=== PATIENT | female | born 1980 | race African-American/Black ===

== ENCOUNTER 2017-02-04 23:40 | Inpatient (IN) | payer BC ==
[2017-02-05 00:30] LABS: #Basophils 0.1 thou/uL (0.0-0.2); #Eosinphils 0.1 thou/uL (0.0-0.7); #Lymphocytes 3.1 thou/uL (1.20-3.40); #Monocytes 0.6 thou/uL (0.11-0.59); #Neutrophils 6.3 thou/uL (1.40-6.50); %Basophils 0.9 % (0.0-1.0); %Eosinophils 1.3 % (0.0-10.0); %Lymphocytes 30.3 % (21.0-51.0); %Monocytes 5.8 % (0.0-10.0); Hematocrit 19.6 % (36.0-47.0); Hypochromia MARKED = >30 cells (100X) (0-5/hpf); Mean Platelet Volume 9.3 fL (7.4-10.4); Microcytosis SLIGHT = 6-15 cells (100X) (0-5/hpf); Ovalocytes SLIGHT = 2-5 cells (100X) (0-1/hpf); Red Blood Cell (RBC) Count 3.54 mill/uL (4.20-5.40); Target Cells SLIGHT = 2-5 cells (100X) (0-1/hpf); Tear Drops SLIGHT = 2-5 cells (100X) (0-1/hpf); White Blood Cell (WBC) Count 10.2 thou/uL (4.8-10.8)
[2017-02-05 00:35] LABS: ALT (SGPT) Less than 7 U/L (8-55); AST (SGOT) 13 U/L (5-34); Alkaline Phosphatase 60 U/L (40-150); Anion Gap 12 mmol/L (10-20); BUN (Urea Nitrogen) 12 mg/dL (7.0-18.7); Bilirubin, Total 0.3 mg/dL (0.2-1.2); Calc. Creatinine Clearance 0 mL/min (70-130); Calcium 8.3 mg/dL (7.8-10.44); Carbon Dioxide 26 mmol/L (22-29); Chloride 105 mmol/L (98-107); Estimated GFR-MDRD 74; Globulin 3.8 g/dL (2.4-3.5); Lipase 12 U/L (8-78); Protein, Total 7.6 g/dL (6.0-8.3)
[2017-02-05] MEDS ORDERED: Pantoprazole 80 MG, Admixture Fee 1 EACH in Sodium Chloride 0.9% 100 ML IVP SCH (00:45)
[2017-02-05] MEDS ORDERED: Ondansetron HCl/PF 4 MG/2 ML Vial ONE ×2 (01:09→16:48)
[2017-02-05] MEDS ORDERED: Pantoprazole 40 MG VIAL ONE (01:09)
[2017-02-05 01:51] LABS: Prothrombin Time 13.2 SEC (12.0-14.7)
[2017-02-05] MEDS ORDERED: Ondansetron ODT 4 MG TAB SL PRN (02:58)
[2017-02-05] MEDS ORDERED: Ondansetron HCl/PF 4 MG/2 ML Vial IVP PRN ×3 (02:58→18:20)
[2017-02-05] MEDS ORDERED: Acetaminophen 325 MG TAB PO PRN (02:58)
[2017-02-05 03:10] VITALS: BMI 38.2
[2017-02-05] MEDS: Lactated Ringer's 1,000 ML IV SCH ×2 (03:15→11:27)
--- NOTE | 2017-02-05 08:30 | HP ---
DATE OF ADMISSION: 02/05/2017 CHIEF COMPLAINT: Vomiting blood. HISTORY OF PRESENT ILLNESS: The patient is a 36-year-old -[place] female who had acute onset of pain, nausea, vomiting, and abdominal cramps, which started last night. She felt different few d ays ago and gradually the way she felt changed to the point that she started vomiting blood and clots and she came to the emergency room for further evaluation. She never had this kind of coughing bloo dy episodes before. Her abdominal cramping started approximately several days ago, but it got worse, recently in the last few days. PAST MEDICAL HISTORY: Positive for: 1. Iron deficiency anemia which is partially related to her heavy menses. 2. Chronic low back pain. 3. Fibromyalgia. 4. Gastroesophageal reflux disease. 5. Hypertension. 6. Anxiety. 7. Depression. 8. Fatty tumor somewhere close to the spine, she does not really know exactly the location. 9. Migraine headaches. PAST SURGICAL HISTORY: 1. Gastric bypass surgery. 2. Cholecystectomy. 3. D&C. SOCIAL HISTORY: She denies any alcohol use, cigarette smoking or use any illicit drugs. She is anabel ied. Her is the surrogate decision maker. His name is Hector Adamson. FAMILY HISTORY: Father and mother had heart disease, hypertension, and father has diabetes. CURRENT MEDICATIONS: Amlodipine 10 mg once a day, tramadol 50 mg q.6 hours p.r.n. as needed, sertral ine 150 mg once a day, Lunesta 2 mg at bedtime, gabapentin 300 mg 3 times a day, Reglan 10 mg 4 times a day, pantoprazole 40 mg once a day along with Nexium p.r.n. and equate [id number] for headac he. ALLERGIES: None. REVIEW OF SYSTEMS: CONSTITUTIONAL: Negative for fever. She has some chills on and off. ENT: Nega tive for epistaxis and nasal congestion. EYES: Negative for eye pain and eye discharge. CARDIOVASC ULAR: Negative for chest pain and palpitations. RESPIRATORY: Negative for shortness of breath and cough. GASTROINTESTINAL: Positive for nausea, hematemesis, and constipation. NEUROLOGIC: Positive for migraine headaches. MUSCULOSKELETAL: Positive for fibromyalgia pains in her feet and hands. H EMATOLOGICAL: Negative for easy bruising and clotting abnormalities. PSYCHIATRIC: Positive for anx iety and depression. PHYSICAL EXAMINATION: GENERAL: She is not in any distress during my evaluation. VITAL SIGNS: Her blood pressure is 121/63, respirations 28, temperature is 97.8, pulse is 81, respir ations 18 and pulse oximetry is 100% on room air. She is receiving a pantoprazole drip and second un it of packed red blood cells. HEENT: Head: Atraumatic, normocephalic. Eyes: PERRLA. Conjunctivae pinkish. Sclerae nonicteric. Oral mucosa is moist. NECK: Supple. No lymphadenopathy. Thyroid is not palpable. LUNGS: Clear. HEART: S1, S2 normal. No S3, no S4. No murmur. ABDOMEN: Soft, mildly tender in the midportion. No guarding. No masses. EXTREMITIES: No clubbing, cyanosis or edema. NEUROLOGIC: She is alert and oriented x4. There is not any sensorimotor deficits present. Cranial nerves are intact. Cerebellar function within normal limits. LABORATORY DATA: Showed white count of 10.2, hemoglobin of 5.5, hematocrit 19.6, MCV 55.4, RDW 21.1, INR 1.0, and PT 13.2. Normal chemistry except for globulin which is 3.8 and serum test is negative. IMPRESSION: 1. Acute upper gastrointestinal bleeding, most likely secondary to ulcer, but at this point etiology is unknown. 2. Anemia secondary to #1 and heavy menses. 3. Heavy menses. 4. Fibromyalgia. 5. Hypertension. 6. Chronic back pain. 7. Gastroesophageal reflux disease. 8. Migraine headaches. 9. Tumor of the spine area and severe localization. PLAN: Full admission. Condition is fair. Activity: Bed rest and bathroom privileges, n.p.o., Prot lynette drip 8 mg per hour IV fluids. She is finishing second unit of packed red blood cells. We will check her hemoglobin and hematocrit q.6 hours x3 and after that we will hold her medications for now until she is seen by a beverage server, Dr. Noland. Most likely he would do EGD this morning and DVT prophylaxis with SCDs. No heparin since she has active bleeding.
[2017-02-05] MEDS ORDERED: Morphine 4 MG/ML VIAL ONE (16:48)
[2017-02-05] MEDS ORDERED: Propofol 500 MG/50 ML VIAL ONE (16:52)
[2017-02-05] MEDS ORDERED: Promethazine HCl 25 MG/ML VIAL IM PRN (17:59)
[2017-02-05] MEDS ORDERED: Promethazine HCl 25 MG/ML VIAL SLOW IVP PRN (17:59)
[2017-02-05] MEDS ORDERED: Pantoprazole 40 MG VIAL IVP SCH (18:45)
[2017-02-05 19:12] LABS: Hematocrit 21.7 % (36.0-47.0)
--- NOTE | 2017-02-05 19:56 | CON ---
DATE OF CONSULTATION: 02/05/2017 SUBJECTIVE: A 36-year-old morbidly obese female who was admitted last night with GI bleed and abdomi nal pain. We are being consulted because she is in the MICU. Nonsmoker, nondrinker. She has had hematemesis now for the last 24 hours. She is on Protonix drip. She denies any chest pain, chills, or sweats. PAST MEDICAL HISTORY: Gastric bypass complicated by wound infection, done by Dr. Luu. PAST MEDICAL HISTORY: Pertinent for chronic pain, fibromyalgia, reflux, severe hypertension. PAST SURGICAL HISTORY: Previous surgeries including bypass, postop wound drainage. MEDICATIONS: List of medicine from home includes aspirin, Nexium, tramadol 50, amlodipine 10, sertra line 1.5, Protonix, gabapentin. ALLERGIES: None. SOCIAL/FAMILY HISTORY: Otherwise unremarkable. REVIEW OF SYSTEMS: Negative. PHYSICAL EXAMINATION: VITAL SIGNS: Sat 100%, respirations 28, temperature 97, blood pressure 120/63. CHEST: No wheezing or crackles. CARDIAC: Normal S1, S2. No gallops. ABDOMEN: Soft. No masses. LABORATORY: White count 10,000, hemoglobin and hematocrit 5.5 and 19, platelet count is normal. She is receiving packed cells. Her electrolytes are normal. Creatinine normal. IMPRESSION: 1. Gastrointestinal bleed. 2. Recent gastric bypass surgery. 3. Fibromyalgia. 4. Hypertension. 5. Obesity. PLAN: I agree with IV fluids transfusion, Protonix. Await GI input. We will follow while in the MICU.
--- NOTE | 2017-02-05 20:29 | CON ---
DATE OF CONSULTATION: 02/05/2017 HISTORY OF PRESENT ILLNESS: Ms. Geronimo is a 36-year-old female, who was admitted for hematemesis a nd severe anemia. She has a history of chronic anemia. She relates that she had a bariatric surgery about a year ago and she also has heavy menstrual cycles with clots. She has never had any GI bleed ing that she is aware of. Since her bariatric surgery, she has constipation, having bowel movements once every week or two. She has no melena or hematochezia. On the day of admission yesterday, she s tathuan came in from work about 3:00, became very nauseated and diaphoretic and then threw up blood. S he states she threw up some clots a couple of times. She had not been throwing up before this. She denies any alcohol use. Denies any drug use. She denies any NSAID use. She does not smoke. She wa s found to have a hemoglobin of 5.5. She does not have anything like that ever before. She notes sh otis has been anemic, but she is not sure what her blood counts have been in the past. She denies any d ysphagia or odynophagia. She denies any problem with eating or having food come back up ever. She d enies any chest pain, shortness of breath, or dyspnea. REVIEW OF SYSTEMS: Negative for dysphagia, odynophagia, abdominal pain, dysuria, frequency, urgency, melena, diarrhea, or hematochezia. The patient states that she does take iron and multivitamin some times. She said she had her follow up recently with Dr. Luu, but did not have any labs done. PAST MEDICAL HISTORY: Chronic iron deficiency anemia, chronic low back pain, fibromyalgia, reflux, h ypertension. PAST SURGICAL HISTORY: Gastric bypass surgery about a year ago, which was complicated by an internal hernia and had emergency surgery in the next day or two. She states she had an open wound and was o n TPN for some time. Since that time, she has done quite well, however. She states she has had a hea rt catheterization in the past. States she has had an appendectomy. Prior D and C. FAMILY HISTORY: Non-Hodgkin's lymphoma in sister. No history of colon cancer or uterine cancer. SOCIAL HISTORY: Negative for alcohol, drugs, or tobacco. MEDICATIONS AT HOME: Tramadol, Dulcolax, Protonix, Zofran, gabapentin, Nexium, hydrocodone, amlodipi ne. PRESENT MEDICATIONS: Tylenol, LR, Zofran, and Protonix drip. PHYSICAL EXAMINATION: GENERAL: Patient is resting comfortably in bed. She is in no distress. VITAL SIGNS: Temperature is 98, pulse 87, blood pressure 142/81, respirations 18. LUNGS: Clear. CARDIAC: Regular rate and rhythm without clicks or murmurs. ABDOMEN: Soft, nontender, without palpable hepatosplenomegaly. EXTREMITIES: No clubbing, cyanosis, or edema. HEENT: Conjunctivae and sclerae are clear. LABORATORY DATA: White count 10.2 on admission, hemoglobin 5.5, MCV 55, platelet count 243. Labs in June of this year showed a hemoglobin of 7.5 and in March 10.6, and on 01/09/2016, 7.9, ranges bet ween 9 and 10 since 2012. INR is 1. Comp met profile is normal with a BUN and creatinine of 12 and 1.01. Liver function tests were normal. test negative. TSH was normal in June. She recei veena 2 units of blood yesterday. ASSESSMENT: 1. This is a 36-year-old female with chronic microcytic anemia, presumptively this is iron deficienc y related to heavy menstrual loss and her previous weight loss surgery. It does not seem that she ta kes any iron supplementation. Her iron was 18 in 10/2015 with a normal TIBC and ferritin of 18. Tho se labs were not rechecked before this transfusion. Her hematemesis is probably self-limited and of probably not too much consequence. However, she has had a previous bariatric surgery and possibly an anastomotic ulcer does exist, though it seems that she has had no problems with dysphagia or regurgi tation in the past year or so. 2. Chronic constipation, likely related to narcotics and bariatric surgery, not taking prescribed vi tamins and folate and thiamine and iron. RECOMMENDATIONS: I consider giving her some IV iron at discharge or setting her up for that on disch arge. We will go ahead and proceed with an EGD today to rule out anastomotic ulcer or other lesions. Presently, the patient is hemodynamically stable. Continue on the Protonix drip until after endosc opy.
[2017-02-05] MEDS: Sucralfate 1 GM/10 ML UDCUP PO SCH ×2 (20:58→23:41)
[2017-02-05] MEDS: Dextrose 5 % And 0.9 % NaCl 1,000 ML IV SCH (20:59)
[2017-02-05] MEDS: traMADol HCl 50 MG TAB PO PRN (21:00)
--- NOTE | 2017-02-05 23:23 | OP ---
PROCEDURE: EGD with control of hemorrhage. PREOPERATIVE DIAGNOSES: 1. History of previous Deny-en-Y gastric bypass. 2. History of severe anemia. 3. History of hematemesis yesterday. POSTOPERATIVE DIAGNOSES: Anastomotic ulcer with visible vessel, high risk rebleeding injected with 1 :10,000 epinephrine 4 mL and cauterized this, a 10-Tu[place]uan heater probe with ablation of the vessel. ANESTHESIA: General endotracheal anesthesia. RECOMMENDATIONS: Protonix IV q.12 hours. Carafate suspension, clear liquids, monitor H&H, transfuse when hemoglobin less than 7. PROCEDURE IN DETAIL: After the patient was informed of the risks, benefits, possible complications o f endoscopy including perforation, bleeding, reactions to medication and aspiration, informed consent was obtained. The patient brought to endoscopy suite where she was sedated with history of hemateme sis and previous gastric bypass surgery. She was intubated for airway protection. The esophagus was normal. The stomach and gastric pouch was normal. However, anastomotic ulcer was noted with a visi ble vessel, the duodenum distal, which was normal. There was no active bleeding. The visible vessel was injected 1:10,000 epinephrine and then cauterized with 10 [place] heater probe cautery and ablate d. Photodocumentation was obtained. The scope was removed. The patient tolerated the procedure wel l with no complications.
[2017-02-06 01:47] LABS: Hematocrit 23.4 % (36.0-47.0)
[2017-02-06] MEDS: traMADol HCl 50 MG TAB PO PRN ×3 (03:10→23:20)
[2017-02-06 04:47] LABS: Anion Gap 9 mmol/L (10-20); BUN (Urea Nitrogen) 10 mg/dL (7.0-18.7); Calc. Creatinine Clearance 166 mL/min (70-130); Calcium 8.1 mg/dL (7.8-10.44); Carbon Dioxide 25 mmol/L (22-29); Chloride 106 mmol/L (98-107); Estimated GFR-MDRD Greater than 90
[2017-02-06 05:08] LABS: #Basophils 0.1 thou/uL (0.0-0.2); #Eosinphils 0.2 thou/uL (0.0-0.7); #Lymphocytes 3.2 thou/uL (1.20-3.40); #Monocytes 0.5 thou/uL (0.11-0.59); #Neutrophils 4.2 thou/uL (1.40-6.50); %Eosinophils 2.5 % (0.0-10.0); %Lymphocytes 38.7 % (21.0-51.0); Hematocrit 23.9 % (36.0-47.0); Mean Platelet Volume 8.2 fL (7.4-10.4); Red Blood Cell (RBC) Count 3.67 mill/uL (4.20-5.40); White Blood Cell (WBC) Count 8.1 thou/uL (4.8-10.8)
[2017-02-06] MEDS: Sucralfate 1 GM/10 ML UDCUP PO SCH ×4 (05:16→23:20)
[2017-02-06] MEDS ORDERED: Chloraseptic Spray 180 ml Bottle PO PRN (07:28)
[2017-02-06] MEDS: Dextrose 5 % And 0.9 % NaCl 1,000 ML IV SCH (07:57)
[2017-02-06] MEDS: Gabapentin 300 MG CAP PO SCH ×3 (07:57→20:49)
[2017-02-06] MEDS: Pantoprazole 40 MG VIAL IVP SCH ×2 (07:58→20:48)
[2017-02-06] MEDS ORDERED: Pantoprazole 40 MG VIAL IVP SCH (09:00)
[2017-02-06 12:24] LABS: Hematocrit 24.9 % (36.0-47.0)
[2017-02-06] MEDS ORDERED: Propofol 200 MG/20 ML VIAL ONE (13:58)
[2017-02-06] MEDS ORDERED: Succinylcholine Chloride 20 MG/ML 10 ml SYRINGE FS ONE (13:58)
--- NOTE | 2017-02-06 14:08 | PRG ---
DATE OF SERVICE: 02/06/2017 SUBJECTIVE: The patient is seen and examined at bedside. She complains about migraine headache. PHYSICAL EXAMINATION: VITAL SIGNS: Blood pressure is 121/70, temperature is 98.6, pulse is 75, respiratory rate is 16, and O2 saturation is 97. HEENT: Pupils are responding to light properly. Sclerae nonicteric. Oral mucosa is moist. NECK: Supple. LUNGS: Clear. HEART: S1 and S2 normal. No S3, no S4. ABDOMEN: Mildly tender in the epigastric area. No guarding, no masses. EXTREMITIES: No clubbing, cyanosis, or edema. NEUROLOGIC: She is alert and oriented x4. There is no sensory or motor deficits. Cranial nerves ar e intact. LABORATORY DATA: Showed hemoglobin of 7.5, hematocrit 24.9. Chemistry shows sodium of 136, potassiu m 3.5, chloride 106, CO2 of 25, BUN 10, creatinine 0.74, glucose 87, and calcium 8.1. IMPRESSION: 1. Upper gastrointestinal bleeding secondary to anastomotic ulcer with visible vessel, status post E GD with control of hemorrhage by injection of 1:10,000 epinephrine 4 mLs and cauterization. 2. Anemia secondary to upper gastrointestinal bleeding plus heavy menses. Hemoglobin is stable at 7 .5 and it was 7.3 at 4 o' clock this morning, so the lowest was at the time of admission at 5.5. 3. Hypertension. 4. Fibromyalgia. 5. Obesity. 6. Migraines. 7. History of relatively recent gastric bypass surgery done, I believe last year. PLAN: Continue her Protonix as per recommendation of Dr. Noland. Continue serial H&Hs, and we will put her back on her gabapentin 300 mg 3 times a day for her migraine headache and if this does not wo rk, we will put her on amitriptyline p.o. and for now, we would continue close monitoring since she i s high risk of bleeding.
--- NOTE | 2017-02-06 14:12 | PRG ---
DATE OF SERVICE: 02/06/2017 SUBJECTIVE: Ms. Geronimo states she had one stool last night that was bloody. She feels well. She is tolerating liquid diet. She denies any nausea or vomiting. PHYSICAL EXAMINATION: VITAL SIGNS: Temperature is 98, pulse 75, blood pressure 121/70. LUNGS: Clear. HEART: Regular rate and rhythm. ABDOMEN: Nontender. LABORATORY STUDIES: Hemoglobin 7.3, was 7.1 at 1 a.m., 6.4 yesterday at 18:57. She received blood a fter that, 1 unit. She had received 2 prior earlier that day. Basic metabolic profile is normal. B UN is 10 and creatinine 0.74. ASSESSMENT: Gastrointestinal bleed from anastomotic ulcer, previous Deny-en-Y gastric bypass. This was treated endoscopically, as there is some significant risk for rebleeding. RECOMMENDATIONS: Advance to soft diet. Serial hemoglobin and hematocrit q.8 hours. We will stop IV fluids and continue IV Protonix and Carafate. If hemoglobin drops further, we will transfuse another unit of blood. If patient has acute bleeding, would need repeat endoscopy. If the patient has no f urther bleeding, but remains anemic, it would be reasonable to give her some IV iron before discharge .
--- NOTE | 2017-02-06 16:43 | PRG ---
DATE OF SERVICE: 02/06/2017 SUBJECTIVE: This morning, she is awake, alert and responsive. No shortness of breath. No abdominal pain. OBJECTIVE: VITAL SIGNS: Temperature 99, pulse 75, respiratory rate 18 and blood pressure 100/76. CHEST: No crackles and no wheezing. CARDIAC: Normal S1 and S2, no gallops. LABORATORY DATA: Hemoglobin and hematocrit stable at 7 and 23, platelet count is normal. ASSESSMENT AND PLAN: History of previous gastric bypass, anemia and hematemesis. There was an anastomotic ulcer with visible vessel treated by GI. PLAN: Continue observation once she leaves the MICU. We will follow at a distance.
[2017-02-06 20:45] LABS: Hematocrit 25.1 % (36.0-47.0)
[2017-02-06] MEDS: HYDROcodone/Acetaminophen 5/325 mg Tablet PO PRN (20:48)
[2017-02-07 04:40] LABS: Hematocrit 24.5 % (36.0-47.0)
[2017-02-07] MEDS: Sucralfate 1 GM/10 ML UDCUP PO SCH ×2 (06:17→11:42)
[2017-02-07] MEDS: HYDROcodone/Acetaminophen 5/325 mg Tablet PO PRN (06:21)
[2017-02-07] MEDS: Pantoprazole 40 MG VIAL IVP SCH (08:47)
[2017-02-07] MEDS: Gabapentin 300 MG CAP PO SCH ×2 (08:47→14:58)
[2017-02-07 11:56] LABS: Hematocrit 27.5 % (36.0-47.0)
[2017-02-07 15:36] VITALS: BP 142/66; TEMP 98.7
--- NOTE | 2017-02-07 15:54 | PRG ---
DATE OF SERVICE: 02/07/2017 PHYSICAL EXAMINATION: VITAL SIGNS: Sats are 97% on room air, temperature 98, blood pressure 120/60. CHEST: No wheezing or crackles. No shortness of breath. CARDIAC: Normal S1, S2. No gallops. ABDOMEN: Soft, no masses. LABORATORY DATA: Stable with hemoglobin and hematocrit is 7.4 and 24. IMPRESSION: 1. Status post gastric bypass. 2. Upper gastrointestinal bleeding from ulcer. PLAN: She appears to be stable enough to be transferred out of the MICU. Pulmonary will follow at a distance.
--- NOTE | 2017-02-08 11:53 | PRG ---
DATE OF SERVICE: 02/07/2017 FOLLOWUP VISIT SUBJECTIVE: Ms. Geronimo has had no further vomiting or emesis. She has had 1 bowel movement with n o blood. Tolerating regular diet. PHYSICAL EXAMINATION: VITAL SIGNS: Temperature is 98, pulse 76, blood pressure 142/66. ABDOMEN: Soft, nontender. LUNGS: Clear. LABORATORY DATA: Hemoglobin is 8.2. ASSESSMENT: Upper gastrointestinal bleed secondary to anastomotic ulcer and Deny-en-Y gastric bypass with visible vessel, this was cauterized and treated with epinephrine. PLAN: She can go home today on Carafate 4 times daily, b.i.d. PPI. She is to take iron and multivit bee. Recommended that she will follow up in the office in 1-2 weeks and follow up with her luis ruiz surgeon.
== END 2017-02-07 16:03 | disposition home or self-care (01) | DRG 919 ==
LOC: ERS 23:40 → IMCU/EMU 02-05 02:50
PROVIDERS: ADMIT Internal Medicine; ATTEND Internal Medicine
PROC: 30233N1 Transfusion of Nonautologous Red Blood Cells into Peripheral Vein, Percutaneous Approach (ICD-10-PCS; 2017-02-05)
PROC: 0W3P8ZZ Control Bleeding in Gastrointestinal Tract, Via Natural or Artificial Opening Endoscopic (ICD-10-PCS; principal; 2017-02-06)
PROC: 3E0G8GC Introduction of Other Therapeutic Substance into Upper GI, Via Natural or Artificial Opening Endoscopic (ICD-10-PCS; 2017-02-06)
DX: K91.840 Postprocedural hemorrhage of a digestive system organ or structure following a digestive system procedure (principal); K28.4 Chronic or unspecified gastrojejunal ulcer with hemorrhage; E66.01 Morbid (severe) obesity due to excess calories; I10 Essential (primary) hypertension; K21.9 Gastro-esophageal reflux disease without esophagitis; D50.0 Iron deficiency anemia secondary to blood loss (chronic); M79.7 Fibromyalgia; G89.29 Other chronic pain; N92.0 Excessive and frequent menstruation with regular cycle; G43.909 Migraine, unspecified, not intractable, without status migrainosus; K59.03 Drug induced constipation; D49.2 Neoplasm of unspecified behavior of bone, soft tissue, and skin; Z68.37 Body mass index [BMI] 37.0-37.9, adult; Z98.84 Bariatric surgery status; Z82.49 Family history of ischemic heart disease and other diseases of the circulatory system; Z83.3 Family history of diabetes mellitus; Z80.7 Family history of other malignant neoplasms of lymphoid, hematopoietic and related tissues; T40.605A Adverse effect of unspecified narcotics, initial encounter; Y83.2 Surgical operation with anastomosis, bypass or graft as the cause of abnormal reaction of the patient, or of later complication, without mention of misadventure at the time of the procedure; Y73.3 Surgical instruments, materials and gastroenterology and urology devices (including sutures) associated with adverse incidents; Y92.234 Operating room of hospital as the place of occurrence of the external cause
CPT/HCPCS: 36415; 36430; 80048; 80053; 82274; 83690; 84703; 85014; 85018; 85025; 85610; 86850; 86900; 86901; 96365; 96374; 96375; C9113; J2270; J2405; J2704; J7050; P9016

== ENCOUNTER 2018-09-13 07:34 | Outpatient (CLI) | payer BC ==
--- NOTE | 2018-09-13 09:02 | CT ---
CT Abdomen Pelvis W Con: 09/13/2018 12:00 AM CLINICAL INFORMATION: Nausea, vomiting, and abdominal pain for a year. History of gastric bypass COMPARISON: 01/06/2016 TECHNIQUE: Multiple contiguous axial images were obtained and a CT of the abdomen and pelvis with IV contrast. Oral contrast was administered. Coronal reformats were performed. FINDINGS: Lower Chest: within normal limits. Abdomen: Liver: within normal limits. Bile Ducts: Normal caliber. Gallbladder: Surgically removed Pancreas: within normal limits. Spleen: within normal limits. Adrenals: within normal limits. Kidneys: within normal limits. Pelvis: Reproductive Organs: No pelvic masses. Ureters: within normal limits. Bladder: within normal limits. Peritoneum: No ascites or free air, no fluid collection. Bowel: Normal caliber. Postsurgical changes from gastric bypass. Mesentery and Retroperitoneum: No enlarged mesenteric or retroperitoneal lymph nodes. Vessels: Normal. Abdominal Wall: within normal limits. Bones: Within normal limits IMPRESSION: No evidence of acute intraabdominal or pelvic abnormality.
== END 2018-09-13 07:35 | disposition home or self-care (01) ==
LOC: BICCT 07:34
PROVIDERS: ATTEND Physician Assistant Medical
DX: K21.9 Gastro-esophageal reflux disease without esophagitis (principal); R10.33 Periumbilical pain; K59.00 Constipation, unspecified; D50.9 Iron deficiency anemia, unspecified; Z98.84 Bariatric surgery status
CPT/HCPCS: 74177

== ENCOUNTER 2022-03-11 17:30 | Outpatient (CLI) | payer OTHER | END 2022-03-11 17:31 | disposition home or self-care (01) | LOC: SLEEPLAB 17:30 | PROVIDERS: ATTEND Internal Medicine Critical Care Medicine | DX: G47.33 Obstructive sleep apnea (adult) (pediatric) (principal); R06.83 Snoring; G47.00 Insomnia, unspecified | CPT/HCPCS: 95800 ==

== ENCOUNTER 2022-09-15 11:54 | Outpatient (CLI) | payer OTHER | END 2022-09-15 11:55 | disposition home or self-care (01) | LOC: BICMAMMO 11:54 | PROVIDERS: ATTEND Family Medicine | DX: Z12.31 Encounter for screening mammogram for malignant neoplasm of breast (principal); N64.89 Other specified disorders of breast; Z80.3 Family history of malignant neoplasm of breast | CPT/HCPCS: 77067 ==

== ENCOUNTER 2022-09-21 13:36 | Outpatient (CLI) | payer OTHER | END 2022-09-21 13:37 | disposition home or self-care (01) | LOC: BICMAMMO 13:36 | PROVIDERS: ATTEND Family Medicine | DX: N64.89 Other specified disorders of breast (principal); R92.2 Inconclusive mammogram | CPT/HCPCS: 77066; G0279 ==